=== PATIENT | female | born 1955 | race Caucasian/White ===

== ENCOUNTER 2016-11-06 09:04 | Inpatient (IN) | payer BC ==
[~2016-11-06 09:04] MED LIST: ANTIFUNGAL; ATIVAN1 M2 PO; CARVEDILOL12.5 M1 PO; CENTRUM SILVER1 EAC6 PO; COMPAZINE10 MG PO; COREG12.5 M1 PO; DARVOCET-N 1001 TAB PO; ECOTRIN325 M2 PO; EFFEXOR XR75 MG PO; FISH OIL 1,2001 EAC5 PO; FISH OIL 1,4001 EAC1 PO; HYDROCODONE-IB1 EAC1 PO; IBUPROFEN200 M2 PO; IBUPROFEN200 MG PO; MULTI-VITAMIN1 EAC3 PO; NORCO 5-325 TA1 EACH PO; OMEGA 3 FISH O1 EACH PO; SEROQUEL100 M2 PO; ULTRAM50 M1 PO; VITAMIN D-32000 UNI4 PO; VITAMIN D31000 UNI3 PO
[2016-11-06 10:48] LABS: BASO % 0.6 % (0-2); EOS % 0.9 % (0-7); EOSINOPHIL ABSOLUTE COUNT 0.1 tho/cmm (0.0-0.7); HCT-HEMATOCRIT 42.7 % (34.0-49.0); HGB-HEMOGLOBIN 14.5 gm/dl (12.0-15.5); LYMPH % 40.2 % (20-45); LYMPH ABSOLUTE COUNT 2.7 tho/cmm (0.8-4.5); MCV (MEAN CELL VOLUME) 91.2 fl (82.0-96.0); MEAN PLATELET VOLUME 10.6 cmc (9.4-12.4); MONO % 9.7 % (0-12); MONOCYTE ABSOLUTE COUNT 0.7 tho/cmm (0.0-1.2); NEUTROPHIL ABSOLUTE COUNT 3.3 tho/cmm (1.6-8.0); NEUTROPHIL-AUTOMATED 3.3 tho/cmm (1.6-8.0); NEUTROPHILS % 48.6 % (40-80); PLATELET COUNT 252 tho/cmm (150-450); RED BLOOD COUNT 4.68 mil/cmm (4.00-5.20); RED CELL DISTRIBUTION WIDTH 14.5 % (12.4-16.4); WHITE BLOOD COUNT 6.7 tho/cmm (4.0-10.0)
[2016-11-06 10:54] LABS: INR 0.9 INR (0.9-1.1); PROTHROMBIN TIME 10.5 SECONDS (9.0-13.6)
[2016-11-06 11:00] LABS: ANION GAP 11 mmol/L (0-20); BLOOD UREA NITROGEN 13 mg/dl (6-24); CALCIUM 8.3 mg/dl (8.5-10.5); CARBON DIOXIDE-VENOUS 26 mmol/L (22-32); CHLORIDE 108 mmol/l (96-110); CREATININE 0.98 mg/dl (0.50-1.10); GLUCOSE 107 mg/dL (70-110); POTASSIUM 4.4 mmol/L (3.7-5.1); SODIUM 141 mmol/L (135-145); eGFR VALUE FOR BLACK 72 mL/Min
[2016-11-06] MEDS ORDERED: OXYCODONE HCL5 M1 PO (12:28)
[2016-11-07 05:32] LABS: HCT-HEMATOCRIT 38.7 % (34.0-49.0); HGB-HEMOGLOBIN 13.3 gm/dl (12.0-15.5); IMMATURE GRANULOCYTES ABSOLUTE 0.03 tho/cmm (0-0.03); IMMATURE GRANULOCYTES PERCENT 0.2 % (0-0.3); LYMPH % 11.8 % (20-45); LYMPH ABSOLUTE COUNT 1.7 tho/cmm (0.8-4.5); MCHC MEAN CORPUSCULAR HGB CONC 34.4 % (32.0-36.0); MCV (MEAN CELL VOLUME) 90.2 fl (82.0-96.0); MEAN PLATELET VOLUME 10.4 cmc (9.4-12.4); MONOCYTE ABSOLUTE COUNT 0.6 tho/cmm (0.0-1.2); NEUTROPHIL ABSOLUTE COUNT 12.3 tho/cmm (1.6-8.0); NEUTROPHIL-AUTOMATED 12.3 tho/cmm (1.6-8.0); PLATELET COUNT 247 tho/cmm (150-450); RED BLOOD COUNT 4.29 mil/cmm (4.00-5.20); RED CELL DISTRIBUTION WIDTH 14.4 % (12.4-16.4)
[2016-11-07 05:44] LABS: WHITE BLOOD COUNT 14.6 tho/cmm (4.0-10.0)
[2016-11-08] MEDS ORDERED: ASPIRIN325 M3 PO (12:26)
[2016-11-08] MEDS ORDERED: TYLENOL325 M2 PO (12:32)
[2016-11-08] MEDS ORDERED: MILK OF MAGNESIA PO (12:33)
[2016-11-08] MEDS ORDERED: MOBIC7.5 M2 PO (12:36)
== END 2016-11-08 14:56 | DRG 470 ==
LOC: SHSA 09:04 → ORE 12:09 → PACU 14:21 → 5EA 15:44
PROVIDERS: ADMIT Orthopaedic Surgery Orthopaedic Surgery of the Spine
PROC: 0SR902A Replacement of Right Hip Joint with Metal on Polyethylene Synthetic Substitute, Uncemented, Open Approach (ICD-10-PCS; principal; 2016-11-06)
DX: M16.11 Unilateral primary osteoarthritis, right hip (principal); Z68.41 Body mass index [BMI] 40.0-44.9, adult; E66.9 Obesity, unspecified; F41.9 Anxiety disorder, unspecified
CPT/HCPCS: C1713; C1776; G0009; J0171; J1170; J1885; J2270; J2795; J3010